=== PATIENT | female | born 1970 | race Caucasian/White ===

== ENCOUNTER 2018-01-25 12:00 | Inpatient (IN) | payer OTHER ==
[2018-01-25] MEDS ORDERED: NACL 0.9% 3 ML SYG IV (13:00)
[2018-01-25] MEDS ORDERED: LORAZEPAM 2 MG INJ IV (13:00)
[2018-01-25] MEDS ORDERED: ONDANSETRON 4 MG INJ IV (13:00)
[2018-01-25] MEDS ORDERED: MAGNESIUM HYDROXIDE 30ML CUP PO (13:00)
[2018-01-25] MEDS ORDERED: DOCUSATE SODIUM 100 MG CAP PO (13:00)
[2018-01-25] MEDS: ASPIRIN 81 MG TAB PO (14:00)
[2018-01-25 14:39] LABS: CREATINE KINASE 31 IU/L (23-200)
[2018-01-25 14:41] LABS: ADD MAN DIFF? NO
[2018-01-25 14:43] LABS: WHITE BLOOD COUNT 7.5 10^3/ul (4.8-10.8)
[2018-01-25 14:43] LABS: BASOPHILS % 0.5 % (0.0-2.0); EOSINOPHILS # 0.1 10^3/ul (0.0-0.5); EOSINOPHILS % 1.7 % (0.0-7.0); HEMATOCRIT 37.5 % (37.0-47.0); HEMOGLOBIN 12.1 g/dl (12.0-16.0); LYMPHOCYTES # 2.5 10^3/ul (0.8-2.9); LYMPHOCYTES % 32.8 % (15.0-51.0); MEAN CORPUSCULAR HEMOGLOBIN 27.6 pg (29.0-33.0); MEAN CORPUSCULAR HGB CONC 32.3 g/dl (32.0-37.0); MEAN CORPUSCULAR VOLUME 85.6 fl (82.0-101.0); MEAN PLATELET VOLUME 10.4 fl (7.4-10.4); MONOCYTE # 0.6 10^3/ul (0.3-0.9); MONOCYTES % 8.2 % (0.0-11.0); NEUTROPHIL # 4.2 10^3/ul (1.6-7.5); NEUTROPHILS % 56.7 % (39.0-77.0); PLATELET COUNT 276 10^3/UL (140-415); RED BLOOD COUNT 4.38 10^6/ul (4.20-5.40); RED CELL DISTRIBUTION WIDTH 13.4 % (11.5-14.5)
[2018-01-25] MEDS: PANTOPRAZOLE (EC) 40 MG TAB PO (14:45)
[2018-01-25] MEDS: METOPROLOL 25 MG TAB PO (14:45)
[2018-01-25] MEDS: SOD CHLORIDE 0.9% 1,000 ML IV (14:45)
[2018-01-25 14:47] LABS: CHOL/HDL RATIO 3.9 RATIO; HDL CHOLESTEROL 54 mg/dl (37-92); LDL CHOLESTEROL,CALCULATED 137 mg/dl; TRIGLYCERIDES 115 mg/dl (0-149)
[2018-01-25 14:47] LABS: CHOLESTEROL 214 mg/dl (100-200)
[2018-01-25 14:51] LABS: CK INDEX 0.7
[2018-01-25 14:52] LABS: CK-MB < 0.22 ng/ml (0.0-2.4); TROPONIN-I < 0.012 ng/ml (0.000-0.120)
[2018-01-25 14:59] LABS: ALBUMIN 3.9 g/dl (3.3-4.9); ANION GAP 16 (8-16); BLOOD UREA NITROGEN 9 mg/dl (7-20); CALCIUM 8.1 mg/dl (8.4-10.2); CARBON DIOXIDE 24 mmol/L (21-31); CHLORIDE 107 mmol/L (97-110); CREATININE 0.52 mg/dl (0.44-1.00); GLUCOSE 92 mg/dl (70-220); PHOSPHORUS 3.9 mg/dl (2.5-4.9); POTASSIUM 4.2 mmol/L (3.5-5.1); SODIUM 143 mmol/L (135-144)
[2018-01-25] MEDS: SOD CHLORIDE 0.9% 100 ML (17:02)
[2018-01-25] MEDS: IOHEXOL 100 ML (17:03)
[2018-01-25] MEDS: IOHEXOL 350MG/ML 50 ML BTL (17:04)
[2018-01-25] MEDS: NITROGLYCERIN AEROSOL (4.9 GM) (17:12)
[2018-01-25 20:12] LABS: CREATINE KINASE 27 IU/L (23-200)
[2018-01-25 20:21] LABS: CK INDEX 0.8
[2018-01-25 20:23] LABS: CK-MB < 0.22 ng/ml (0.0-2.4)
[2018-01-25 20:26] LABS: TROPONIN-I < 0.012 ng/ml (0.000-0.120)
[2018-01-25] MEDS: ATORVASTATIN 20 MG TAB PO (20:55)
[2018-01-26] MEDS: NITROGLYCERIN (SL) 0.4 MG TAB SL (04:40)
[2018-01-26] MEDS: ACETAMINOPHEN 325 MG TAB PO (04:41)
[2018-01-26] MEDS: PANTOPRAZOLE (EC) 40 MG TAB PO (05:48)
[2018-01-26] MEDS: ASPIRIN 81 MG TAB PO (08:01)
[2018-01-26 08:21] LABS: ADD MAN DIFF? NO
[2018-01-26 08:33] LABS: BASOPHILS % 0.3 % (0.0-2.0); EOSINOPHILS # 0.2 10^3/ul (0.0-0.5); HEMATOCRIT 37.2 % (37.0-47.0); HEMOGLOBIN 11.7 g/dl (12.0-16.0); LYMPHOCYTES # 2.3 10^3/ul (0.8-2.9); LYMPHOCYTES % 30.4 % (15.0-51.0); MEAN CORPUSCULAR HEMOGLOBIN 27.3 pg (29.0-33.0); MEAN CORPUSCULAR HGB CONC 31.5 g/dl (32.0-37.0); MEAN CORPUSCULAR VOLUME 86.7 fl (82.0-101.0); MEAN PLATELET VOLUME 10.4 fl (7.4-10.4); MONOCYTE # 0.5 10^3/ul (0.3-0.9); MONOCYTES % 6.7 % (0.0-11.0); NEUTROPHIL # 4.6 10^3/ul (1.6-7.5); NEUTROPHILS % 60.3 % (39.0-77.0); PLATELET COUNT 272 10^3/UL (140-415); RED BLOOD COUNT 4.29 10^6/ul (4.20-5.40); RED CELL DISTRIBUTION WIDTH 13.7 % (11.5-14.5)
[2018-01-26 08:33] LABS: WHITE BLOOD COUNT 7.6 10^3/ul (4.8-10.8)
[2018-01-26 08:47] LABS: ALANINE AMINOTRANSFERASE 29 IU/L (13-69); ALBUMIN 3.3 g/dl (3.3-4.9); ALBUMIN/GLOBULIN RATIO 1.06; ALKALINE PHOSPHATASE 80 IU/L (42-121); ANION GAP 11 (8-16); ASPARTATE AMINO TRANSFERASE 20 IU/L (15-46); BILIRUBIN,INDIRECT 0.2 mg/dl (0-1.1); BILIRUBIN,TOTAL 0.2 mg/dl (0.2-1.3); BLOOD UREA NITROGEN 8 mg/dl (7-20); CALCIUM 8.1 mg/dl (8.4-10.2); CARBON DIOXIDE 28 mmol/L (21-31); CHLORIDE 109 mmol/L (97-110); CREATININE 0.57 mg/dl (0.44-1.00); GLUCOSE 100 mg/dl (70-220); MAGNESIUM 2.1 mg/dl (1.7-2.5); POTASSIUM 4.3 mmol/L (3.5-5.1); SODIUM 144 mmol/L (135-144); TOTAL PROTEIN 6.4 g/dl (6.1-8.1)
== END 2018-01-26 18:29 | disposition home or self-care (01) | DRG 313 ==
LOC: MS4 12:00
DX: R07.9 Chest pain, unspecified (principal); E78.5 Hyperlipidemia, unspecified; M06.9 Rheumatoid arthritis, unspecified; R42 Dizziness and giddiness; M19.90 Unspecified osteoarthritis, unspecified site
CPT/HCPCS: 75574; 80053; 80061; 80069; 82550; 82553; 83735; 84443; 84484; 85025; 93306

== ENCOUNTER 2018-10-11 08:35 | Emergency (ER) | payer OTHER ==
[2018-10-11 08:58] LABS: URINE BLOOD (Dip) POC Negative (NEGATIVE); URINE GLUCOSE (Dip) POC Negative (NEGATIVE); URINE KETONES (Dip) POC Negative (NEGATIVE); URINE LEUKOCYTE EST (Dip) POC Negative (NEGATIVE); URINE NITRITE (Dip) POC Negative (NEGATIVE); URINE TOTAL PROTEIN POC 1+ (NEGATIVE)
[2018-10-11] MEDS: SOD CHLORIDE 0.9% 1,000 ML IV (09:02)
[2018-10-11] MEDS: KETOROLAC 30 MG INJ IV (09:02)
[2018-10-11] MEDS: ONDANSETRON 4 MG INJ IV (09:02)
[2018-10-11] MEDS: morphine 4 MG/ML VIAL IV (10:38)
== END 2018-10-11 11:27 | disposition home or self-care (01) ==
LOC: FTE 08:35
DX: J32.9 Chronic sinusitis, unspecified (principal)
CPT/HCPCS: 70450; 81003; 81025; 96361; 96374; 96375; 99285-25